=== PATIENT | female | born 1955 | race Caucasian/White ===

== ENCOUNTER 2017-03-15 13:59 | Emergency (ER) | payer OTHER ==
[~2017-03-15] VITALS: Ht 167.6 cm; Wt 59.0 kg
[~2017-03-15 13:59] MED LIST: NO MEDS
[2017-03-15 14:01] VITALS: Ht 167.6 cm; Wt 59.0 kg
[2017-03-15] MEDS ORDERED: IBUPROFEN 800 MG TAB PO ONE (14:30)
[2017-03-15] MEDS ORDERED: IBUP-1542 PO (15:22)
--- NOTE | 2017-03-15 15:26 | ERD ---
ER Documentation Chief Complaint Date/Time DATE: 03/15/17 TIME: 15:24 Chief Complaint tripped on sidewalk yesterday. left rib pain HPI Patient is a 61-year-old female with no medical problems who presents with left- sided rib pain. She had a trip and fall yesterday and fell onto the sidewalk. She hit her knee and left ribs. She has left-sided rib pain which is why she came to the hospital. She has had no treatment as of yet. She says that it hurts worse with deep breaths. She does not currently have a primary doctor. ROS All systems reviewed and are negative except as per history of present illness. Medications Home Meds Active Scripts Ibuprofen* (Motrin*) 600 Mg Tab, 600 MG PO Q8, #30 TAB Prov:MILAGROS POLLARD MD 03/15/17 Reported Medications [No Meds] No Conflict Check 08/13/10 Allergies Allergies: Coded Allergies: No Known Drug Allergies (Verified Allergy, Mild, 08/13/10) PMhx/Soc History of Surgery: Yes (L ANKLE) Anesthesia Reaction: No Hx Neurological Disorder: No Hx Respiratory Disorders: No Hx Cardiac Disorders: No Hx Psychiatric Problems: No Hx Miscellaneous Medical Probl: No Hx Alcohol Use: No Hx Substance Use: No Hx Tobacco Use: No FmHx Family History: diabetes Physical Exam Vitals Vital Signs Date Time Temp Pulse Resp B/P Pulse Ox O2 Delivery O2 Flow Rate FiO2 03/15/17 14:01 98.0 63 18 175/85 98 Physical Exam Const: No acute distress Head: Atraumatic Eyes: Normal Conjunctiva ENT: Normal External Ears, Nose and Mouth. Neck: Full range of motion..~ No meningismus. Resp: Clear to auscultation bilaterally Cardio: Regular rate and rhythm, no murmurs Abd: Soft, non tender, non distended. Normal bowel sounds Skin: No petechiae or rashes Back: No midline or flank tenderness Ext: Pain over the left lower ribs without signs of bruising or crepitus Neur: Awake and alert Psych: Normal Mood and Affect Results 24 hrs Current Medications Medications (Trade) Dose Ordered Sig/Alonzo Route PRN Reason Start Time Stop Time Status Last Admin Dose Admin Ibuprofen (Motrin) 800 mg ONCE ONCE PO 03/15/17 14:30 03/15/17 14:31 DC 03/15/17 14:31 Procedures/MDM X-ray Ribs 3V Interpreted by me: Soft Tissue: No acute abnormalities Bones: No acute abnormalities Mediastinum/Cardiac Silhouette/Lungs: No acute abnormalities Smoking Cessation Therapy: Pt. was lectured for greater than 3 minutes on the health risks of continued smoking and the benefits of cessation. Patient is a 61-year-old female who presents after a mechanical fall yesterday. Rib x-ray shows no obvious sign of rib fracture or pneumothorax. I believe she likely has rib contusion. I see no other signs of serious traumatic injury at this time. I believe outpatient management is appropriate. The patient will be given ibuprofen for pain. She can return for any worsening symptoms. I doubt intrathoracic or intra-abdominal trauma. Departure Diagnosis: Primary Impression: Rib contusion Encounter type: initial encounter Laterality: left Qualified Code: S20.212A - Rib contusion, left, initial encounter Additional Impression: Fall Encounter type: initial encounter Qualified Code: W19.XXXA - Fall, initial encounter Condition: Fair Patient Instructions: Fall, Mechanical, Rib Contusion Referrals: [facility] YOU HAVE RECEIVED A MEDICAL SCREENING EXAM AND THE RESULTS INDICATE THAT YOU DO NOT HAVE A CONDITION THAT REQUIRES URGENT TREATMENT IN THE EMERGENCY DEPARTMENT. FURTHER EVALUATION AND TREATMENT OF YOUR CONDITION CAN WAIT UNTIL YOU ARE SEEN IN YOUR DOCTORS OFFICE WITHIN THE NEXT 1-2 DAYS. IT IS YOUR RESPONSIBILITY TO MAKE AN APPOINTMENT FOR FOLOW-UP CARE. IF YOU HAVE A PRIMARY DOCTOR --you should call your primary doctor and schedule an appointment IF YOU DO NOT HAVE A PRIMARY DOCTOR YOU CAN CALL OUR PHYSICIAN REFERRAL HOTLINE AT IF YOU CAN NOT AFFORD TO SEE A PHYSICIAN YOU CAN CHOSE FROM THE FOLLOWING [facility] [address] [facility] [address] [facility] [facility] [address] [facility] [address] [facility] [address] [facility]. [facility]. [address] Additional Instructions: Call your primary care doctor TOMORROW for an appointment during the next 1 WEEK.Tell the corporation secretary that you were referred from this facility.See the doctor sooner or return here if your condition worsens before your appointment time. MILAGROS POLLARD MD Mar 15, 2017 15:26
--- NOTE | 2017-03-15 15:34 | RADRPT ---
PROCEDURE: Left rib series CLINICAL INDICATION: Left rib pain TECHNIQUE: Two views of the left ribs were obtained. COMPARISON: FINDINGS: No displaced left rib fracture is seen. No osteolytic or osteoblastic lesion is seen. The soft tis jhoana structures are intact. The visualized portions of the chest appear unremarkable. IMPRESSION: No acute displaced left rib fracture. RPTAT: [facility] Physician Jayy Date Time Electronically viewed and signed by Oswald España Physician on 03/15/2017 15:33 /
== END 2017-03-15 15:32 | disposition home or self-care (01) ==
LOC: FTE 13:59
DX: S20.212A Contusion of left front wall of thorax, initial encounter (principal); W10.1XXA Fall (on)(from) sidewalk curb, initial encounter; Y92.9 Unspecified place or not applicable
CPT/HCPCS: 71100